=== PATIENT | male | born 1985 ===

== ENCOUNTER 2024-02-21 12:26 | Observation (INO) | payer OTHER ==
--- NOTE | 2024-02-21 12:40 | ED ---
Alcohol HPI - General Stated Complaint: ETOH Time Seen by Provider: 02/21/24 12:26 Source: patient, EMS, RN notes reviewed Mode of arrival: EMS - History of Present Illness Initial Comments: 38-year-old male with a history of alcohol abuse who states he has been drinking heavily for the last several weeks. He denies any suicidal or ideation he had presented himself to [facility] for inpatient treatment was found to have a 0.339 call level on breath alcohol evaluation. He was found to be nauseated with some evidence of vomiting he was given Zofran by paramedics upon evaluation and during transport. He denies any complaints other than having the need to use the bathroom facilities. Trauma reported he was found to have a elevated blood glucose level of 458 he states he believes he is probably diabetic but is on no medication he has no prior history he states. No other current complaints or modifying factors MD Complaint: alcohol intoxication - Related Data Home Medications Medication Instructions Recorded Confirmed No Known Home Medications 02/21/24 02/21/24 Allergies Allergy/AdvReac Type Severity Reaction Status Date / Time No Known Allergies Allergy Verified 02/21/24 14:20 Review of Systems ROS Statement: Those systems with pertinent positive or pertinent negative responses have been documented in the HPI. ROS Other: All systems not noted in ROS Statement are negative. General Exam - General Exam Comments Initial Comments: This is a well-developed well-nourished awake alert lethargic male with a smell of alcohol conjoiners on his breath Course Vital Signs 02/21/24 12:31 Temperature 98.9 F Pulse Rate 101 H Respiratory 18 Rate Blood Pressure 122/83 O2 Sat by Pulse 98 Oximetry Medical Decision Making - Medical Decision Making Patient's lab work has been reviewed by me. The patient demonstrates intoxication he had alcohol level on blood work 474 glucose level 381 increased liver enzymes. I did discuss the case with Young harmon for Dr. Perez. Patient will be admitted was pt. sent in by a medical professional or institution (Dr. PA, DERRICK WORKER, urgent care, hospital, or snf...) When possible be specific @ -No Did you speak to anyone other than the patient for history (EMS, parent, family, police, friend...)? What history was obtained from this source @ -Paramedics upon arrival Did you review nursing and triage notes (agree or disagree)? Why? @ -I reviewed and agree with nursing and triage notes Were old charts reviewed (outside hosp., previous admission, EMS record, old EKG, old radiological studies, urgent care reports/EKG's, snf records)? Report findings @ -No old charts were reviewed Differential Diagnosis (chest pain, altered mental status, abdominal pain women, abdominal pain men, vaginal bleeding, weakness, fever, dyspnea, syncope, headache, dizziness, GI bleed, back pain, seizure, CVA, palpatations, mental health, musculoskeletal)? @ -Alcohol intoxication, nausea vomiting] EKG interpreted by me (3pts min.). @ -As above EKG interpreted by me sinus rhythm of 89 MS interval 147 QRS duration 97 QT/QTc 374/[address]-T wave changes seen X-rays interpreted by me (1pt min.). @ -None done CT interpreted by me (1pt min.). @ -None done U/S interpreted by me (1pt. min.). @ -None done What testing was considered but not performed or refused? (CT, X-rays, U/S, labs)? Why? @ -None What meds were considered but not given or refused? Why? @ -None Did you discuss the management of the patient with other professionals (professionals i.e. , PA, DERRICK WORKER, lab, RT, psych nurse, social services, plate filler, teacher, parcel post officer, disability case manager)? Give summary @ -Young covering for Dr. Varner Was smoking cessation discussed for >3mins.? @ -No Was critical care preformed (if so, how long)? @ -No Were there social determinants of health that impacted care today? How? (Homelessness, low income, unemployed, alcoholism, drug addiction, transportation, low edu. Level, literacy, decrease access to med. care, assisted, rehab)? @ -Alcohol abuse Was there de-escalation of care discussed even if they declined (Discuss DNR or withdrawal of care, Hospice)? DNR status @ -No What co-morbidities impacted this encounter? (DM, HTN, Smoking, COPD, CAD, Cancer, CVA, ARF, Chemo, Hep., AIDS, mental health diagnosis, sleep apnea, morbid obesity)? @ -Alcohol abuse, possibly diabetic Was patient admitted / discharged? Hospital course, mention meds given and route, prescriptions, significant lab abnormalities, going to OR and other pertinent info. @ -Hospital course patient was admitted for inpatient treatment of alcohol intoxication with pending withdrawal Undiagnosed new problem with uncertain prognosis? @ -Alcohol abuse Drug Therapy requiring intensive monitoring for toxicity (Heparin, Nitro, Insulin, Cardizem)? @ -No Were any procedures done? @ -No Diagnosis/symptom? @ -Acute alcohol intoxication, hyperglycemia, elevated liver enzymes, elevated ammonia level Acute, or Chronic, or Acute on Chronic? @ -Acute Uncomplicated (without systemic symptoms) or Complicated (systemic symptoms)? @ -Complicated Side effects of treatment? @ -No Exacerbation, Progression, or Severe Exacerbation? @ -Exacerbation Poses a threat to life or bodily function? How? (Chest pain, [place], [place], pneumonia, PE, COPD, DKA, ARF, appy, cholecystitis, CVA, Diverticulitis, Homicidal, Suicidal, threat to staff... and all critical care pts) @ -Potential - Lab Data Result diagrams: 02/21/24 12:59 02/21/24 12:59 Lab Results 02/21/24 02/21/24 02/21/24 Range/Units 12:59 12:59 12:59 WBC 4.4 (3.8-10.6) k/uL RBC 4.74 (4.30-5.90) m/uL Hgb 14.8 (13.0-17.5) gm/dL Hct 46.3 (39.0-53.0) % MCV 97.6 (80.0-100.0) fL MCH 31.3 (25.0-35.0) pg MCHC 32.0 (31.0-37.0) g/dL RDW 15.7 H (11.5-15.5) % Plt Count 102 L (150-450) k/uL MPV 7.9 Neutrophils % 62 % Lymphocytes % 21 % Monocytes % 10 % Eosinophils % 2 % Basophils % 2 % Neutrophils # 2.7 (1.3-7.7) k/uL Lymphocytes # 1.0 (1.0-4.8) k/uL Monocytes # 0.4 (0-1.0) k/uL Eosinophils # 0.1 (0-0.7) k/uL Basophils # 0.1 (0-0.2) k/uL Sodium 145 (137-145) mmol/L Potassium 4.5 (3.5-5.1) mmol/L Chloride 109 H (98-107) mmol/L Carbon Dioxide 26 (22-30) mmol/L Anion Gap 10 mmol/L BUN 4 L (9-20) mg/dL Creatinine 0.53 L (0.66-1.25) mg/dL Est GFR (CKD-EPI)AfAm >90 (>60 ml/min/1.73 sqM) Est GFR (CKD-EPI)NonAf >90 (>60 ml/min/1.73 sqM) Glucose 381 H (74-99) mg/dL Calcium 8.2 L (8.4-10.2) mg/dL Magnesium 1.7 (1.6-2.3) mg/dL Total Bilirubin 4.1 H (0.2-1.3) mg/dL AST 111 H (17-59) U/L ALT 70 H (4-49) U/L Alkaline Phosphatase 315 H (38-126) U/L Ammonia (<30) umol/L Troponin I (0.000-0.034) ng/mL Total Protein 7.2 (6.3-8.2) g/dL Albumin 3.5 (3.5-5.0) g/dL Lipase 467 H (23-300) U/L Urine Opiates Screen Not Detected (NotDetected) Ur Oxycodone Screen Not Detected (NotDetected) Urine Methadone Screen Not Detected (NotDetected) Ur Barbiturates Screen Not Detected (NotDetected) U Tricyclic Antidepress Not Detected (NotDetected) Ur Phencyclidine Scrn Not Detected (NotDetected) Ur Amphetamines Screen Not Detected (NotDetected) U Methamphetamines Scrn Not Detected (NotDetected) U Benzodiazepines Scrn Not Detected (NotDetected) Urine Cocaine Screen Not Detected (NotDetected) U Marijuana (THC) Screen Not Detected (NotDetected) Serum Alcohol 474 H* mg/dL 02/21/24 02/21/24 Range/Units 12:59 12:59 WBC (3.8-10.6) k/uL RBC (4.30-5.90) m/uL Hgb (13.0-17.5) gm/dL Hct (39.0-53.0) % MCV (80.0-100.0) fL MCH (25.0-35.0) pg MCHC (31.0-37.0) g/dL RDW (11.5-15.5) % Plt Count (150-450) k/uL MPV Neutrophils % % Lymphocytes % % Monocytes % % Eosinophils % % Basophils % % Neutrophils # (1.3-7.7) k/uL Lymphocytes # (1.0-4.8) k/uL Monocytes # (0-1.0) k/uL Eosinophils # (0-0.7) k/uL Basophils # (0-0.2) k/uL Sodium (137-145) mmol/L Potassium (3.5-5.1) mmol/L Chloride (98-107) mmol/L Carbon Dioxide (22-30) mmol/L Anion Gap mmol/L BUN (9-20) mg/dL Creatinine (0.66-1.25) mg/dL Est GFR (CKD-EPI)AfAm (>60 ml/min/1.73 sqM) Est GFR (CKD-EPI)NonAf (>60 ml/min/1.73 sqM) Glucose (74-99) mg/dL Calcium (8.4-10.2) mg/dL Magnesium (1.6-2.3) mg/dL Total Bilirubin (0.2-1.3) mg/dL AST (17-59) U/L ALT (4-49) U/L Alkaline Phosphatase (38-126) U/L Ammonia 56 H (<30) umol/L Troponin I 0.013 (0.000-0.034) ng/mL Total Protein (6.3-8.2) g/dL Albumin (3.5-5.0) g/dL Lipase (23-300) U/L Urine Opiates Screen (NotDetected) Ur Oxycodone Screen (NotDetected) Urine Methadone Screen (NotDetected) Ur Barbiturates Screen (NotDetected) U Tricyclic Antidepress (NotDetected) Ur Phencyclidine Scrn (NotDetected) Ur Amphetamines Screen (NotDetected) U Methamphetamines Scrn (NotDetected) U Benzodiazepines Scrn (NotDetected) Urine Cocaine Screen (NotDetected) U Marijuana (THC) Screen (NotDetected) Serum Alcohol mg/dL - EKG Data -: EKG Interpreted by Me EKG Comments: EKG sinus rhythm 89 parable 147 QRS duration 97 QT/QTc 374/420 Disposition Clinical Impression: Alcoholic intoxication, Alcohol withdrawal syndrome, Hyperglycemia, Elevated liver enzymes, Hyperammonemia Disposition: ADMITTED IP TO THIS HOSP Condition: Fair Referrals: None,Stated [Primary Care Provider] - 1-2 days Time of Disposition: 14:50 Decision Date: 02/21/24 Decision Time: 14:50
[2024-02-21 13:42] LABS: Amphetamine Screen,Urine Not Detected (NotDetected); Barbiturate Screen,Urine Not Detected (NotDetected); Benzodiazepines Screen,Urine Not Detected (NotDetected); Cocaine Screen,Urine Not Detected (NotDetected); Methadone Screen, Urine Not Detected (NotDetected); Opiate Screen,Urine Not Detected (NotDetected); Oxycodone Screen, Urine Not Detected (NotDetected); Phencyclidine Screen,Urine Not Detected (NotDetected); Tricyclic Antidepressant,Urine Not Detected (NotDetected); Urn Cannabinoid Scrn Not Detected (NotDetected)
[2024-02-21 13:51] LABS: Basophils # (A) 0.1 k/uL (0-0.2); Basophils % (A) 2 %; Eosinophils # (A) 0.1 k/uL (0-0.7); Eosinophils % (A) 2 %; HCT 46.3 % (39.0-53.0); HGB 14.8 gm/dL (13.0-17.5); Lymphocytes % (A) 21 %; MCH 31.3 pg (25.0-35.0); MCV 97.6 fL (80.0-100.0); Mean Platelet Volume 7.9; Monocytes # (A) 0.4 k/uL (0-1.0); Monocytes % (A) 10 %; Neutrophils # (A) 2.7 k/uL (1.3-7.7); Neutrophils % (A) 62 %; Platelet Count 102 k/uL (150-450); RBC 4.74 m/uL (4.30-5.90); RDW 15.7 % (11.5-15.5); WBC 4.4 k/uL (3.8-10.6)
[2024-02-21 14:06] LABS: ALT 70 U/L (4-49); African American GFR (CKD) >90 (>60 ml/min/1.73 sqM); Albumin 3.5 g/dL (3.5-5.0); Anion Gap 10 mmol/L; Blood Urea Nitrogen 4 mg/dL (9-20); Calcium 8.2 mg/dL (8.4-10.2); Carbon Dioxide 26 mmol/L (22-30); Chloride 109 mmol/L (98-107); Glucose 381 mg/dL (74-99); Lipase 467 U/L (23-300); Non-African American GFR(CKD) >90 (>60 ml/min/1.73 sqM); Sodium 145 mmol/L (137-145); Total Bilirubin 4.1 mg/dL (0.2-1.3); Total Protein 7.2 g/dL (6.3-8.2)
[2024-02-21 14:21] LABS: AST 111 U/L (17-59); Alkaline Phosphatase 315 U/L (38-126); Magnesium 1.7 mg/dL (1.6-2.3); Potassium 4.5 mmol/L (3.5-5.1)
[2024-02-21 14:30] LABS: Alcohol 474 mg/dL
[2024-02-21] MEDS ORDERED: NALOXONE 0.4 MG/ML 1 ML VIAL IV PRN (15:11)
[2024-02-21] MEDS ORDERED: ONDANSETRON 4 MG/2 ML VIAL IVP PRN (15:11)
[2024-02-21] MEDS ORDERED: LORazepam 1 MG TAB PO PRN ×3 (15:13→16:09)
[2024-02-21] MEDS ORDERED: LORazepam 2 MG/ML INJ IV PRN ×4 (16:09)
[2024-02-21] MEDS ORDERED: DEXTROSE 50% SYRINGE 50 ML IVP PRN ×2 (16:22)
[2024-02-21 17:17] LABS: Glucose,Whole Blood 296 mg/dL (70-110)
--- NOTE | 2024-02-21 17:24 | P.HPIM ---
History of Present Illness H&P Date: 02/21/24 History of Presenting Illness: Patient is a 38-year-old male with a past medical history of alcohol abuse. He presented to the emergency department from [facility] for a chief complaint of alcohol intoxication. Patient presented to [facility] for inpatient rehab and was found to be intoxicated with breathalyzer report 0.339 and patient was sent to the emergency department for medical detox, as patient must be clinically sober to be accepted into their facility. Patient reports guarding hard" over the past few years and states he drinks approximately a fifth of liquor daily. Patient states he knows he needs to quit and expresses that he has tried to get into rehab. Patient reports he plans to go back to rehab at time of discharge. He denies any recreational or prescription drug use/abuse denies any nicotine use. Patient denies having any other complaints at this time including headache, lightheadedness, dizziness, chest pain, palpitations, shortness of breath, cough or congestion, nausea, vomiting, or abdominal pain. On arrival to the hospital, patient underwent evaluation in the emergency department. Vital signs upon arrival show blood pressure 122/83, heart rate 101, respiratory rate 18, temp 98.9 F, and SpO2 of 98% on room air. EKG completed showing normal sinus rhythm at 89 bpm with T wave inversion in lateral leads I, II, and aVL and no significant ST abnormalities showing no signs of acute ischemia. Labs completed and reviewed. CBC showing thrombocytopenia with platelet count of 102. BMP showing hyperchloremia with chloride of 109 and hyperglycemia with glucose of 381. Magnesium slightly low at 1.7. Liver profile showing elevated total bili of 4.1, AST of 111, ALT of 70, alkaline phosphatase of 315, and ammonia of 56. Troponin 0.013. Lipase 467. Alcohol level elevated at 474. Patient admitted under our services to medical observation unit for medical detox. Review of systems: Pertinent positives and negatives as discussed in HPI, a complete review of systems was performed and all other systems are negative. Physical exam: Vital signs reviewed and stable. General: Nontoxic, no distress and appears stated age. Derm: Skin warm and dry, normal coloration for ethnicity. Head: Atraumatic, normocephalic and symmetric. Eyes: EOM's intact, no lid lag, and anicteric sclera Mouth: no lip lesions, mucus membranes moist Cardiovascular: regular rate and rhythm with normal S1S2, no murmur, positive posterior tibial pulses bilaterally, and cap refill < 2 seconds. Lungs: Respirations even, regular, and unlabored on room air. Lungs CTA bilaterally, no rhonchi, no rales, no wheezing, and no accessory muscle usage. Abdominal: soft, nontender to palpation, no guarding, no appreciable organomegaly Ext: ROM intact. No gross muscle atrophy, no edema, no contractures Neuro: Speech clear, face symmetrical and CN II-XII grossly intact with no noted focal neuro deficits Psych: Alert and oriented to person, place, time, and situation. Appropriate and pleasant affect. Assessment and Plan of Care: Alcohol intoxication in active alcoholic Transaminitis with hyperbilirubinemia, secondary to daily alcohol abuse and possible underlying alcoholic liver cirrhosis Elevated lipase, secondary to alcohol abuse Thrombocytopenia, secondary to alcohol abuse -Order placed for monitoring of CIWA scores and patient to be medicated with Ativan 0.5 mg every 4 hours as needed for CIWA score of 4-5, Ativan 1 mg every 4 hours for CIWA score of 6-7, Ativan 2 mg every 3 hours CIWA score of 8-9, and Ativan 2 mg every 2 hours forr CIWA score of 10 or greater. -Continuous IV hydration. -Thiamine 100 mg daily, Multivitamin daily and Folate 1 mg daily -Seizure, fall, aspiration, and elopement precautions in place. -Urine drug screen was negative. -Continued close monitoring of electrolytes and replace as needed. -Telemetry monitoring. Hyperglycemia -Glucose 381, patient denies any history of diabetes but also does not follow with a PCP. -Order placed for glycemic protocol with NovoLog sliding scale call and we will obtain hemoglobin A1c. Data and imaging reviewed: As stated above in HPI The patient is admitted with an anticipated less than 2 midnight stay for evaluation of alcohol intoxication and medical detox CODE STATUS: Full code DVT prophylaxis: SCDs Anticipated discharge date: Likely 24 to [address]: Home vs returning to [facility] Patient was seen independently by Nurse Practitioner. This document was prepared using [employer] dictation software. Please allow for errors in senior medical transcriptionist, while rare they do occur. Young Vidal NP rendered care for this patient independently, reviewed the find ings and plan as documented in the note above. I did not physically speak with or examine the patient on this date. Past Medical History Past Medical History: No Reported History Past Surgical History: No Surgical Hx Reported Smoking Status: Never smoker Past Alcohol Use History: Abuse Past Drug Use History: None Reported Medications and Allergies Home Medications Medication Instructions Recorded Confirmed Type No Known Home Medications 02/21/24 02/21/24 History Allergies Allergy/AdvReac Type Severity Reaction Status Date / Time No Known Allergies Allergy Verified 02/21/24 14:20 Physical Exam Vitals: Vital Signs Temp Pulse Resp BP Pulse Ox 02/21/24 12:31 98.9 F 101 H 18 122/83 98 Intake and Output 02/21/24 02/21/24 02/21/24 06:59 14:59 22:59 Other: Weight 68.039 kg Results CBC & Chem 7: 02/21/24 12:59 02/21/24 12:59 Labs: Abnormal Lab Results - Last 24 Hours (Table) 02/21/24 02/21/24 02/21/24 Range/Units 12:59 12:59 12:59 RDW 15.7 H (11.5-15.5) % Plt Count 102 L (150-450) k/uL Chloride 109 H (98-107) mmol/L BUN 4 L (9-20) mg/dL Creatinine 0.53 L (0.66-1.25) mg/dL Glucose 381 H (74-99) mg/dL Calcium 8.2 L (8.4-10.2) mg/dL Total Bilirubin 4.1 H (0.2-1.3) mg/dL AST 111 H (17-59) U/L ALT 70 H (4-49) U/L Alkaline Phosphatase 315 H (38-126) U/L Ammonia 56 H (<30) umol/L Lipase 467 H (23-300) U/L Serum Alcohol 474 H* mg/dL
[2024-02-21] MEDS: THIAMINE 100 MG/ML 2 ML VIAL IM STA (17:32)
[2024-02-21] MEDS: INSULIN ASPART (NovoLOG) 100 UNIT/ML VIAL SQ SCH (17:33)
[2024-02-21] MEDS: SODIUM CHLORIDE 0.9% 1,000 ML IV SCH (17:36)
[2024-02-21] MEDS: LACTATED RINGERS 1,000 ML IV SCH (17:57)
[2024-02-21 20:30] LABS: Glucose,Whole Blood 161 mg/dL (70-110)
[2024-02-21] MEDS: FAMOTIDINE 20 MG TAB PO SCH (21:15)
[2024-02-22] MEDS: LORazepam 0.5 MG TAB PO PRN (02:18)
[2024-02-22 06:20] LABS: Glucose,Whole Blood 190 mg/dL (70-110)
[2024-02-22] MEDS ORDERED: LORazepam 1 MG/0.5 ML VIAL IV PRN ×4 (08:19→08:20)
[2024-02-22 09:04] VITALS: BP 143/89; PULSE 75; RESP 14; TEMP 98.5
[2024-02-22] MEDS: THIAMINE 100 MG TAB PO SCH (09:52)
[2024-02-22] MEDS: MULTIVITAMINS, THERA 1 EACH TAB PO SCH (09:52)
[2024-02-22] MEDS: FOLIC ACID 1 MG TAB PO SCH (09:52)
[2024-02-22 10:36] LABS: HCT 42.4 % (39.6-50.0); HGB 14.6 g/dL (13.0-17.0); MCH 31.6 pg (27.0-32.0); MCHC 34.4 g/dL (32.0-37.0); MCV 91.8 FL (80.0-97.0); Magnesium 1.6 mg/dL (1.5-2.4); Mean Platelet Volume 9.8 FL (9.5-12.2); NRBC Per 100 WBC 0 X 10*3/uL (0.00-0.01); Platelet Count 94 X 10*3/uL (140-440); RBC 4.62 X 10*6/uL (4.40-5.60); RDW 15.6 % (11.5-14.5); WBC 4.16 X 10*3/uL (4.50-10.00)
--- NOTE | 2024-02-22 11:10 | P.DS ---
Providers Date of admission: 02/21/24 14:45 Expected date of discharge: 02/22/24 Attending physician: Augustin Varner MD Primary care physician: Stated None Hospital Course: Discharge Diagnosis: Alcohol intoxication in active alcoholic. Patient clinically sober at this time. He is being discharged to [facility] for rehab. Patient strongly educated on the importance of alcohol cessation and the risks of continued use up to and including further deterioration of his health. Patient is from [facility], was offered to refer him to local cover creaser, patient states he will follow-up with cover creaser closer to his home after discharge from [facility].. Transaminitis with hyperbilirubinemia, secondary to daily alcohol abuse. Improving with total bili of 3.5, and 202 upon discharge. Elevated lipase, secondary to alcohol abuse Thrombocytopenia, secondary to alcohol abuse. Stable on discharge with platelet count of 94 Newly diagnosed type 2 diabetes mellitus with hyperglycemia, patient with hyperglycemia with glucose elevated up to 381. Hemoglobin A1c 6.8%. Patient provided with glucometer and educated on checking blood glucose levels. He is discharged home on metformin and instructed to follow-up with PCP after discharge from [facility]. Hospital Course: Patient is a 38-year-old male with a past medical history of alcohol abuse. He presented to the emergency department from [place] for a chief complaint of alcohol intoxication. Patient presented to [facility] for inpatient rehab and was found to be intoxicated with breathalyzer report 0.339 and patient was sent to the emergency department for medical detox, as patient must be clinically sober to be accepted into their facility. Patient reports guarding hard" over the past few years and states he drinks approximately a fifth of liquor daily. Patient states he knows he needs to quit and expresses that he has tried to get into rehab. Patient reports he plans to go back to rehab at time of discharge. He denies any recreational or prescription drug use/abuse denies any nicotine use. Patient denies having any other complaints at this time including headache, lightheadedness, dizziness, chest pain, palpitations, shortness of breath, cough or congestion, nausea, vomiting, or abdominal pain. On arrival to the hospital, patient underwent evaluation in the emergency department. Vital signs upon arrival show blood pressure 122/83, heart rate 101, respiratory rate 18, temp 98.9 F, and SpO2 of 98% on room air. EKG completed showing normal sinus rhythm at 89 bpm with T wave inversion in lateral leads I, II, and aVL and no significant ST abnormalities showing no signs of acute ischemia. Labs completed and reviewed. CBC showing thrombocytopenia with platelet count of 102. BMP showing hyperchloremia with chloride of 109 and hyperglycemia with glucose of 381. Magnesium slightly low at 1.7. Liver profile showing elevated total bili of 4.1, AST of 111, ALT of 70, alkaline phosphatase of 315, and ammonia of 56. Troponin 0.013. Lipase 467. Alcohol level elevated at 474. Patient admitted under our services to medical observation unit for medical detox. Physical exam: Vital signs reviewed and stable. General: Nontoxic, no distress and appears stated age. Derm: Skin warm and dry, normal coloration for ethnicity. Head: Atraumatic, normocephalic and symmetric. Eyes: EOM's intact, no lid lag, and anicteric sclera Mouth: no lip lesions, mucus membranes moist Cardiovascular: regular rate and rhythm with normal S1S2, no murmur, positive posterior tibial pulses bilaterally, and cap refill < 2 seconds. Lungs: Respirations even, regular, and unlabored on room air. Lungs CTA bilaterally, no rhonchi, no rales, no wheezing, and no accessory muscle usage. Abdominal: soft, nontender to palpation, no guarding, no appreciable organomegaly Ext: ROM intact. No gross muscle atrophy, no edema, no contractures Neuro: Speech clear, face symmetrical and CN II-XII grossly intact with no noted focal neuro deficits Psych: Alert and oriented to person, place, time, and situation. Appropriate and pleasant affect. A total of 34 minutes of time were spent preparing this complex discharge summary. Pt was discharged on 02/22/24 at 11:08 AM Patient was seen independently by Nurse Practitioner. This document was prepared using [employer] dictation software. Please allow for errors in systems software specialist while rare they do occur. Young Vidal NP rendered care for this patient independently, reviewed the findings and plan as documented in the note above. I did not physically speak with or examine the patient on this date. Patient Condition at Discharge: Stable Plan - Discharge Summary New Discharge Prescriptions: New Famotidine [Pepcid] 20 mg PO BID 30 Days #60 tab Folic Acid 1 mg PO DAILY 30 Days #30 tab Multivitamins, Thera [Multivitamin (formulary)] 1 each PO DAILY 30 Days #30 tab Thiamine [Vitamin B-1] 100 mg PO DAILY 30 Days #30 tab metFORMIN HCL 500 mg PO BID 30 Days #60 tablet Discharge Medication List Famotidine [Pepcid] 20 mg PO BID 30 Days #60 tab 02/22/24 [Rx] Folic Acid 1 mg PO DAILY 30 Days #30 tab 02/22/24 [Rx] Multivitamins, Thera [Multivitamin (formulary)] 1 each PO DAILY 30 Days #30 tab 02/22/24 [Rx] Thiamine [Vitamin B-1] 100 mg PO DAILY 30 Days #30 tab 02/22/24 [Rx] metFORMIN HCL 500 mg PO BID 30 Days #60 tablet 02/22/24 [Rx] Follow up Appointment(s)/Referral(s): None,Stated [Primary Care Provider] - 1-2 days Patient Instructions/Handouts: Alcohol Intoxication (DC) Activity/Diet/Wound Care/Special Instructions: Patient is medically cleared to return to [facility] at this time. Activity: As tolerated. Diet: Heart healthy and carb consistent diet. Avoid salts, or foods with hidden salts such as canned or boxed foods and frozen dinners. Extra salt makes your heart work harder and traps the fluid in your body for longer. Special Instructions: Take all of your medications as directed and remember to keep all of your doctor's appointments and follow-up as needed. Blood glucose levels daily and document these findings and a daily log/next doctor's appointment. As discussed your newly diagnosed diabetic. It is important to follow-up with a primary care doctor along with a cover creaser for further evaluation and closer monitoring of your liver function. Highly recommend cessation of any and all alcohol use continued use will only lead to further deterioration of your health up to and including . Thank you for allowing us to participate in your care, it was truly a pleasure having you for our patient!!! . Discharge Disposition: HOME SELF-CARE
[2024-02-22 11:26] LABS: ALT 66 U/L (10-49); AST 93 U/L (14-35); Albumin 3.6 g/dL (3.8-4.9); Albumin/Globulin Ratio 1.16 Ratio (1.60-3.17); Alkaline Phosphatase 202 U/L (41-126); BUN/Creat Ratio 6.29 Ratio (12.00-20.00); Blood Urea Nitrogen 4.4 mg/dL (9.0-27.0); Calcium 8.6 mg/dL (8.7-10.3); Chloride 105 mmol/L (96-109); Globulin 3.1 g/dL (1.6-3.3); Glucose 190 mg/dL (70-110); Potassium 4.2 mmol/L (3.5-5.5); Sodium 142 mmol/L (135-145); Total Bilirubin 3.5 mg/dL (0.3-1.2); Total Protein 6.7 g/dL (6.2-8.2)
[2024-02-22 11:32] LABS: INR 1.32 sec (0.93-1.11)
[2024-02-22] MEDS: MAGNESIUM OXIDE 400 MG TAB PO STA (12:05)
== END 2024-02-22 12:27 | disposition home or self-care (01) ==
LOC: EC 12:26 → 4SSUR 14:45
PROVIDERS: ADMIT Internal Medicine; ATTEND Internal Medicine
DX: F10.129 Alcohol abuse with intoxication, unspecified (principal); E11.65 Type 2 diabetes mellitus with hyperglycemia; F10.139 Alcohol abuse with withdrawal, unspecified; D69.59 Other secondary thrombocytopenia; R74.01 Elevation of levels of liver transaminase levels; R74.8 Abnormal levels of other serum enzymes; E72.20 Disorder of urea cycle metabolism, unspecified; E87.8 Other disorders of electrolyte and fluid balance, not elsewhere classified; E80.6 Other disorders of bilirubin metabolism; Y90.8 Blood alcohol level of 240 mg/100 ml or more
CPT/HCPCS: 82075; 96374; 99285; 36415; 93005; 83930; 80053 ×2; 82140; 83690; 83735 ×2; 84484; 85025; 85027; 85610; 80306; 80320; 83036; G0378 ×2; J3411

== ENCOUNTER 2024-02-27 12:33 | Emergency (ER) | payer OTHER ==
[2024-02-27] MEDS: KETOROLAC 15 MG/ML 1 ML VIAL IVP STA (13:13)
[2024-02-27] MEDS: ONDANSETRON 4 MG/2 ML VIAL IVP STA (13:16)
[2024-02-27] MEDS: SODIUM CHLORIDE 0.9% 1,000 ML IV STA (13:16)
--- NOTE | 2024-02-27 13:24 | ED ---
General Adult HPI - General Source: patient, RN notes reviewed, old records reviewed Mode of arrival: ambulatory Limitations: no limitations <Fito Jenkins - Last Filed: 02/27/24 14:22> - General Source: RN notes reviewed, old records reviewed Mode of arrival: ambulatory Limitations: no limitations - History of Present Illness -: days(s) Location: abdomen Radiation: non-radiation Severity scale (1-10): 7 Quality: stabbing, aching Consistency: constant Improves with: none Worsens with: cold therapy Associated Symptoms: loss of appetite, malaise, nausea/vomiting <Mart Arnett - Last Filed: 02/27/24 17:34> - General Chief complaint: Abdominal Pain Stated complaint: Abdominal Pain Time Seen by Provider: 02/27/24 12:52 - History of Present Illness Initial comments: 38-year-old male presenting from [facility] 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 Patient has been at [facility] for the past few days and was recently admitted to this institution with alcohol withdrawal. He does have some nausea without vomiting. Patient reports subjective fevers and chills. He states he has been doing well regarding his abstinence from alcohol. (Fito Jenkins) This is a 38-year-old male to the ER for evaluation of [facility] with significant abdominal pain cramping and diarrhea. Patient was recently here in the hospital for admission with no other acute findings. Patient was discharged home and coming back with chest pain and abdominal pain today and (Mart Arnett) - Related Data Home Medications Medication Instructions Recorded Confirmed Calcium/Mag/Zinc/D3 1 tab PO TID PRN 02/27/24 02/27/24 Chlorpheniramine Maleate 4 mg PO Q4H PRN 02/27/24 02/27/24 [Chlor-Trimeton] Hyoscyamine Sulfate [Levsin-Sl] 0.125 mg SL QID PRN 02/27/24 02/27/24 Ibuprofen [Motrin Ib] 600 mg PO Q6HR PRN 02/27/24 02/27/24 Insulin Regular, Human [NovoLIN R] See Protocol SQ ACHS 02/27/24 02/27/24 Loperamide HCl [Imodium A-D] 4 mg PO QID PRN MDD 8 TABS 02/27/24 02/27/24 Melatonin 10 mg PO HS 02/27/24 02/27/24 Mirtazapine [Remeron] 15 mg PO HS 02/27/24 02/27/24 Multivitamins, Thera [Multivitamin 1 tab PO DAILY 02/27/24 02/27/24 (formulary)] Mylanta 30 ml PO Q4H PRN 02/27/24 02/27/24 busPIRone HCl [Buspar] 10 mg PO TID 02/27/24 02/27/24 guaiFENesin [guaiFENesin Oral 200 mg PO Q4H PRN 02/27/24 02/27/24 Solution] ondansetron HCL [Zofran] 8 mg PO Q6HR PRN 02/27/24 02/27/24 Previous Rx's Medication Instructions Recorded Folic Acid 1 mg PO DAILY 30 Days #30 tab 02/22/24 Thiamine [Vitamin B-1] 100 mg PO DAILY 30 Days #30 tab 02/22/24 metFORMIN HCL 500 mg PO BID 30 Days #60 tablet 02/22/24 Allergies Allergy/AdvReac Type Severity Reaction Status Date / Time No Known Allergies Allergy Verified 02/27/24 14:00 Review of Systems ROS Other: All systems not noted in ROS Statement are negative. <Fito Jenkins - Last Filed: 02/27/24 14:22> ROS Other: All systems not noted in ROS Statement are negative. <Mart Arnett - Last Filed: 02/27/24 17:34> ROS Statement: Those systems with pertinent positive or pertinent negative responses have been documented in the HPI. Past Medical History Past Medical History: Diabetes Mellitus History of Any Multi-Drug Resistant Organisms: None Reported Past Surgical History: No Surgical Hx Reported Additional Past Surgical History / Comment(s): cauterize espohageal varices Past Anesthesia/Blood Transfusion Reactions: No Reported Reaction Smoking Status: Never smoker Past Alcohol Use History: Abuse, Daily, Heavy Past Drug Use History: None Reported <Fito Jenkins - Last Filed: 02/27/24 14:22> General Exam Limitations: no limitations General appearance: alert, in no apparent distress Head exam: Present: atraumatic, normocephalic Eye exam: Present: normal appearance, PERRL ENT exam: Present: mucous membranes dry Neck exam: Present: normal inspection. Absent: tenderness, meningismus Respiratory exam: Present: normal lung sounds bilaterally. Absent: respiratory distress, wheezes Cardiovascular Exam: Present: regular rate, normal rhythm GI/Abdominal exam: Present: soft. Absent: distended, tenderness, guarding, rebound Extremities exam: Present: normal inspection Neurological exam: Present: alert, oriented X3 Psychiatric exam: Present: normal affect, normal mood Skin exam: Present: warm, dry, intact <Fito Jenkins - Last Filed: 02/27/24 14:22> General appearance: alert, in no apparent distress Head exam: Present: atraumatic, normocephalic, normal inspection Eye exam: Present: normal appearance, PERRL, EOMI. Absent: scleral icterus, conjunctival injection, periorbital swelling ENT exam: Present: normal exam, mucous membranes moist Neck exam: Present: normal inspection. Absent: tenderness, meningismus, lymphadenopathy Respiratory exam: Present: normal lung sounds bilaterally. Absent: respiratory distress, wheezes, rales, rhonchi, stridor Cardiovascular Exam: Present: regular rate, normal rhythm, normal heart sounds. Absent: systolic murmur, diastolic murmur, rubs, gallop, clicks GI/Abdominal exam: Present: soft, normal bowel sounds. Absent: distended, tenderness, guarding, rebound, rigid Extremities exam: Present: normal inspection, full ROM, normal capillary refill. Absent: tenderness, pedal edema, joint swelling, calf tenderness Back exam: Present: normal inspection Neurological exam: Present: alert, oriented X3, CN II-XII intact Psychiatric exam: Present: normal affect, normal mood Skin exam: Present: warm, dry, intact, normal color. Absent: rash <Mart Arnett - Last Filed: 02/27/24 17:34> Course <Mart Arnett - Last Filed: 02/27/24 17:34> Vital Signs 02/27/24 02/27/24 02/27/24 12:38 14:52 15:44 Temperature 98.7 F Pulse Rate 79 93 94 Respiratory 20 16 16 Rate Blood Pressure 127/84 104/62 91/53 O2 Sat by Pulse 97 95 97 Oximetry - Reevaluation(s) Reevaluation #1: 02/27/24 17:33 Records reviewed (Mart Arnett) Reevaluation #2: 02/27/24 17:33 Patient symptoms unchanged (Mart Arnett) Reevaluation #3: 02/27/24 17:33 Patient informed of results questions answered (Mart Arnett) Reevaluation #4: Patient is asking for pain medication here in the emergency department request is denied (Mart Arnett) Reevaluation #5: Differential Abdominal Pain Men: Appendicitis, cholecystitis, diverticulosis, ischemic bowel, pancreatitis, hepatitis, UTI, gastroenteritis, AAA, incarcerated hernia, bowel obstruction, constipation, inflammatory bowel, hepatitis, peptic ulcer disease, splenic infarction, perforated viscus, testicular torsion, this is not meant to be an all-inclusive list (Mart Arnett) Medical Decision Making - Lab Data Result diagrams: 02/27/24 13:08 02/27/24 13:08 <Fito Jenkins - Last Filed: 02/27/24 14:22> - Lab Data Result diagrams: 02/27/24 13:08 02/27/24 13:08 <Mart Arnett - Last Filed: 02/27/24 17:34> - Medical Decision Making Was pt. sent in by a medical professional or institution ([facility], DIALER, urgent care, hospital, or fpc...) When possible be specific @ -No Did you speak to anyone other than the patient for history (EMS, parent, family, police, friend...)? What history was obtained from this source @ -No Did you review nursing and triage notes (agree or disagree)? Why? @ -I reviewed and agree with nursing and triage notes Were old charts reviewed (outside hosp., previous admission, EMS record, old EKG, old radiological studies, urgent care reports/EKG's, fpc records)? Report findings @ -No old charts were reviewed Differential Abdominal Pain Men: Appendicitis, cholecystitis, diverticulosis, ischemic bowel, pancreatitis, hepatitis, UTI, gastroenteritis, AAA, incarcerated hernia, bowel obstruction, constipation, inflammatory bowel, hepatitis, peptic ulcer disease, splenic infarction, perforated viscus, testicular torsion, this is not meant to be an all-inclusive list EKG interpreted by me (3pts min.). @ -As above X-rays interpreted by me (1pt min.). @ -None done CT interpreted by me (1pt min.). @ -CT pending of the abdomen pelvis U/S interpreted by me (1pt. min.). @ -None done What testing was considered but not performed or refused? (CT, X-rays, U/S, labs)? Why? @ -None What meds were considered but not given or refused? Why? @ -None Did you discuss the management of the patient with other professionals (professionals i.e. , PA, DIALER, lab, RT, psych nurse, social insurance adviser, substation supervisor, teacher, industrial relations officer, casework specialist)? Give summary @ -No Was smoking cessation discussed for >3mins.? @ -No Was critical care preformed (if so, how long)? @ -No Were there social determinants of health that impacted care today? How? (Homelessness, low income, unemployed, alcoholism, drug addiction, tr ansportation, low edu. Level, literacy, decrease access to med. care, prison, rehab)? @ -No Was there de-escalation of care discussed even if they declined (Discuss DNR or withdrawal of care, Hospice)? DNR status @ -No What co-morbidities impacted this encounter? (DM, HTN, Smoking, COPD, CAD, Cancer, CVA, ARF, Chemo, Hep., AIDS, mental health diagnosis, sleep apnea, morbid obesity)? @Alcohol abuse Was patient admitted / discharged? Hospital course, mention meds given and route, prescriptions, significant lab abnormalities, going to OR and other pertinent info. @38-year-old male with generalized abdominal pain. Patient seen and evaluated, generalized abdominal tenderness, recent laboratory testing revealing liver failure. Hemodynamics are stable. Workup is initiated including repeat labo ratory testing and CT imaging of the abdomen pelvis. Patient care signed out at shift change to Dr. Arnett Awaiting these results. (Fito Jenkins) 38 male with nonspecific abdominal pain. CT negative patient's lab testing is stable, patient can be discharged home (Mart Arnett) - Lab Data Lab Results 02/27/24 02/27/24 02/27/24 Range/Units 13:08 13:08 13:08 WBC 7.2 (3.8-10.6) k/uL RBC 4.19 L (4.30-5.90) m/uL Hgb 13.4 (13.0-17.5) gm/dL Hct 39.7 (39.0-53.0) % MCV 94.7 (80.0-100.0) fL MCH 31.9 (25.0-35.0) pg MCHC 33.7 (31.0-37.0) g/dL RDW 15.4 (11.5-15.5) % Plt Count 99 L (150-450) k/uL MPV 8.9 Neutrophils % 76 % Lymphocytes % 12 % Monocytes % 7 % Eosinophils % 2 % Basophils % 1 % Neutrophils # 5.5 (1.3-7.7) k/uL Lymphocytes # 0.8 L (1.0-4.8) k/uL Monocytes # 0.5 (0-1.0) k/uL Eosinophils # 0.2 (0-0.7) k/uL Basophils # 0.1 (0-0.2) k/uL Manual Slide Review Performed RBC Morphology Normal PT 14.7 H (10.0-12.5) sec INR 1.4 H (<1.2) APTT 29.2 (22.0-30.0) sec Sodium (137-145) mmol/L Potassium (3.5-5.1) mmol/L Chloride (98-107) mmol/L Carbon Dioxide (22-30) mmol/L Anion Gap mmol/L BUN (9-20) mg/dL Creatinine (0.66-1.25) mg/dL Est GFR (CKD-EPI)AfAm (>60 ml/min/1.73 sqM) Est GFR (CKD-EPI)NonAf (>60 ml/min/1.73 sqM) Glucose (74-99) mg/dL Calcium (8.4-10.2) mg/dL Total Bilirubin (0.2-1.3) mg/dL AST (17-59) U/L ALT (4-49) U/L Alkaline Phosphatase (38-126) U/L Total Protein (6.3-8.2) g/dL Albumin (3.5-5.0) g/dL Amylase (30-110) U/L Lipase (23-300) U/L Urine Color Yellow Urine Appearance Clear (Clear) Urine pH 7.5 (5.0-8.0) Ur Specific [place] 1.017 (1.001-1.035) Urine Protein Negative (Negative) Urine Glucose (UA) 3+ H (Negative) Urine Ketones Negative (Negative) Urine Blood Negative (Negative) Urine Nitrite Negative (Negative) Urine Bilirubin Negative (Negative) Urine Urobilinogen <2.0 (<2.0) mg/dL Ur Leukocyte Esterase Negative (Negative) 02/27/24 Range/Units 13:08 WBC (3.8-10.6) k/uL RBC (4.30-5.90) m/uL Hgb (13.0-17.5) gm/dL Hct (39.0-53.0) % MCV (80.0-100.0) fL MCH (25.0-35.0) pg MCHC (31.0-37.0) g/dL RDW (11.5-15.5) % Plt Count (150-450) k/uL MPV Neutrophils % % Lymphocytes % % Monocytes % % Eosinophils % % Basophils % % Neutrophils # (1.3-7.7) k/uL Lymphocytes # (1.0-4.8) k/uL Monocytes # (0-1.0) k/uL Eosinophils # (0-0.7) k/uL Basophils # (0-0.2) k/uL Manual Slide Review RBC Morphology PT (10.0-12.5) sec INR (<1.2) APTT (22.0-30.0) sec Sodium 135 L (137-145) mmol/L Potassium 4.4 (3.5-5.1) mmol/L Chloride 109 H (98-107) mmol/L Carbon Dioxide 22 (22-30) mmol/L Anion Gap 4 mmol/L BUN 6 L (9-20) mg/dL Creatinine 0.53 L (0.66-1.25) mg/dL Est GFR (CKD-EPI)AfAm >90 (>60 ml/min/1.73 sqM) Est GFR (CKD-EPI)NonAf >90 (>60 ml/min/1.73 sqM) Glucose 146 H (74-99) mg/dL Calcium 8.6 (8.4-10.2) mg/dL Total Bilirubin 3.5 H (0.2-1.3) mg/dL AST 66 H (17-59) U/L ALT 47 (4-49) U/L Alkaline Phosphatase 416 H (38-126) U/L Total Protein 7.1 (6.3-8.2) g/dL Albumin 3.5 (3.5-5.0) g/dL Amylase 188 H (30-110) U/L Lipase 404 H (23-300) U/L Urine Color Urine Appearance (Clear) Urine pH (5.0-8.0) Ur Specific [place] (1.001-1.035) Urine Protein (Negative) Urine Glucose (UA) (Negative) Urine Ketones (Negative) Urine Blood (Negative) Urine Nitrite (Negative) Urine Bilirubin (Negative) Urine Urobilinogen (<2.0) mg/dL Ur Leukocyte Esterase (Negative) Disposition <Fito Jenkins N - Last Filed: 02/27/24 14:22> Is patient prescribed a controlled substance at d/c from ED?: No Time of Disposition: 16:35 <Mart Arnett - Last Filed: 02/27/24 17:34> Clinical Impression: Abdominal pain Disposition: HOME SELF-CARE Condition: Fair Instructions (If sedation given, give patient instructions): Abdominal Pain (ED) Referrals: None,Stated [Primary Care Provider] - 1-2 days
[2024-02-27 13:32] LABS: Basophils # (A) 0.1 k/uL (0-0.2); Basophils % (A) 1 %; Eosinophils # (A) 0.2 k/uL (0-0.7); Eosinophils % (A) 2 %; HCT 39.7 % (39.0-53.0); HGB 13.4 gm/dL (13.0-17.5); Lymphocytes # (A) 0.8 k/uL (1.0-4.8); Lymphocytes % (A) 12 %; MCH 31.9 pg (25.0-35.0); MCHC 33.7 g/dL (31.0-37.0); MCV 94.7 fL (80.0-100.0); Mean Platelet Volume 8.9; Monocytes # (A) 0.5 k/uL (0-1.0); Monocytes % (A) 7 %; Neutrophils # (A) 5.5 k/uL (1.3-7.7); Neutrophils % (A) 76 %; RBC 4.19 m/uL (4.30-5.90); RDW 15.4 % (11.5-15.5); WBC 7.2 k/uL (3.8-10.6)
[2024-02-27 13:47] LABS: Appearance,Urine Clear (Clear); Bilirubin,Urine Negative (Negative); Blood,Urine Negative (Negative); Color,Urine Yellow; Glucose,Urine (UA) 3+ (Negative); Ketones,Urine Negative (Negative); Leukocyte Esterase,Urine Negative (Negative); Nitrite,Urine Negative (Negative); PH, Urine 7.5 (5.0-8.0); Protein,Urine Negative (Negative); Specific Gravity,Urine 1.017 (1.001-1.035); Urobilinogen,Urine <2.0 mg/dL (<2.0)
[2024-02-27 13:52] LABS: INR 1.4 (<1.2); Partial Thromboplastin Time 29.2 sec (22.0-30.0); Prothrombin Time 14.7 sec (10.0-12.5)
[2024-02-27 13:53] LABS: Platelet Count 99 k/uL (150-450)
[2024-02-27 13:54] LABS: RBC Morphology Normal
[2024-02-27 13:56] LABS: ALT 47 U/L (4-49); African American GFR (CKD) >90 (>60 ml/min/1.73 sqM); Albumin 3.5 g/dL (3.5-5.0); Amylase 188 U/L (30-110); Anion Gap 4 mmol/L; Blood Urea Nitrogen 6 mg/dL (9-20); Calcium 8.6 mg/dL (8.4-10.2); Carbon Dioxide 22 mmol/L (22-30); Chloride 109 mmol/L (98-107); Glucose 146 mg/dL (74-99); Lipase 404 U/L (23-300); Non-African American GFR(CKD) >90 (>60 ml/min/1.73 sqM); Sodium 135 mmol/L (137-145); Total Bilirubin 3.5 mg/dL (0.2-1.3); Total Protein 7.1 g/dL (6.3-8.2)
[2024-02-27 14:06] LABS: AST 66 U/L (17-59); Alkaline Phosphatase 416 U/L (38-126); Potassium 4.4 mmol/L (3.5-5.1)
[2024-02-27 14:27] VITALS: TEMP 98.7
[2024-02-27] MEDS: HYDROmorphone 0.5 MG/0.5 ML SYRINGE IVP STA (14:43)
[2024-02-27 15:22] VITALS: RESP 16
--- NOTE | 2024-02-27 16:05 | CT ---
EXAMINATION TYPE: CT abdomen pelvis w con DATE OF EXAM: 02/27/2024 COMPARISON: NONE HISTORY: 38-year-old male ABD PAIN TECHNIQUE: Contiguous axial scanning of the abdomen and without IV contrast. Delayed images through t he kidneys and coronal/sagittal reconstructions performed. CT DLP: 959.5 mGycm Automated exposure control for dose reduction was used. FINDINGS: The heart is normal size without pericardial effusion. Strandy atelectasis in the lower lungs. Cirrhotic, nodular morphology of the liver. A TIPS shunt is present. Gallbladder is collapsed but with mild circumferential wall thickening, probably secondary to the pat ient's cirrhosis. Splenomegaly measuring up to 15.1 cm on axial series but with marked thickening up to 7.7 cm. Adrenal glands, kidneys, and spleen within normal limits. No dilated small bowel, free fluid, or free air. No mesenteric or retroperitoneal lymphadenopathy. Some prominent fluid-filled small bowel loops in the right side of the abdomen. Some liquid stool is present throughout the right side of the colon. No pericolic inflammatory change. Mild to moderate circumferential bladder wall thickening. Couple pelvic phleboliths. No abnormal flui d collection in the pelvis or pelvic lymphadenopathy seen. Bones: Mild degenerative disc bulging L5-S1. No osseous destructive process. IMPRESSION: 1. CIRRHOSIS WITH PORTAL VENOUS HYPERTENSION CHARACTERIZED BY SPLENOMEGALY UP TO 15.1 CM AND THE PRES ENCE OF A TIPS SHUNT. 2. SOME PROMINENT FLUID-FILLED SMALL BOWEL LOOPS IN THE RIGHT SIDE OF THE ABDOMEN AND SCATTERED LIQUI D STOOL WITHIN THE COLON. CONSIDER A NONSPECIFIC MILD ENTERITIS. 3. CIRCUMFERENTIAL BLADDER WALL THICKENING MAY BE CHRONIC FOR THE PATIENT. CORRELATE TO EXCLUDE CYSTI TIS.
[2024-02-27 17:50] VITALS: BP 131/85; PULSE 96
== END 2024-02-27 17:46 | disposition home or self-care (01) ==
LOC: EC 12:33
DX: R10.9 Unspecified abdominal pain (principal); F10.20 Alcohol dependence, uncomplicated
CPT/HCPCS: 99284; 96374; 96375 ×2; 96361; 36415; 80053; 82150; 83690; 85025; 85610; 85730; 81003; 74177; J2405; J1885; J1170; Q9967